=== PATIENT | female | born 1945 | race Caucasian/White ===

== ENCOUNTER 2017-05-04 04:56 | Inpatient (IN) | payer OTHER, BC ==
[~2017-05-04] VITALS: Ht 2.5 cm; Wt 93.9 kg
[2017-05-04] VITALS (38 sets, daily range): BP systolic 81–155; BP diastolic 43–90
--- NOTE | ~2017-05-04 | HC ---
[facility] [place] [address] [place] [address] CONSULTATION Name: MARIENUNU Room #: 209-P [facility] IN ..#: [id number] Admission: 05/04/17 Attend Phys: Goyo Worrell MD Discharge: Date of : 43 Report #: [id number] THIS REPORT FOR: //name// CC: Goyo [facility] DATE OF SERVICE: 05/06/2017 HISTORY OF PRESENT ILLNESS: The patient is a 71-year-old white female with a prior history of hypertension, hyperlipidemia, COPD, exogenous obesity who was noted to have right shoulder impingement, right shoulder rotator cuff tear, biceps tendinitis, who underwent right shoulder arthroscopic rotator cuff repair with biceps tenodesis and extensive arthroscopic debridement by Dr. Cavanaugh on 05/04/2017. During the extubation, the patient was in respiratory distress. She was seen by manager clinical pharmacy and was intubated, chest tube was placed. She was hypotensive with blood pressure stabilized with IV fluids. She was transferred to the ICU. She was noted to have a right pneumothorax. She had a slow leak from the chest tube. Pulmonary has been involved. She has been extubated. The chest tube did fall out and was replaced by Interventional Radiology. She continues on suction. We are seeing her in rehabilitation medicine consultation. PAST MEDICAL HISTORY: As noted above. She has a history of hypertension, tachycardia, Graves disease, high cholesterol, COPD, ulcers, right little toe amputation, and left knee replacement. 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 MEDICATIONS: Please see the full medication listing. SOCIAL HISTORY: Lives near [place], [place]. She will be staying with her son here in the [place] area. The son lives in a house with two floors. He works during the day. The patient will be at the son's house with her . He is retired, has had back problems and walks with a cane, but he will be assisting the patient during the postoperative period while they are at their son's home. REVIEW OF SYSTEMS: No current complaints of chest pain, shortness of breath, abdominal discomfort. She has some right upper extremity discomfort as expected. PHYSICAL EXAMINATION: GENERAL: Pleasant, overweight 71-year-old white female in no obvious distress. VITAL SIGNS: Last recorded temperature 98.1, pulse 102, respirations 16, blood pressure 149/75. [facility] [address] [place] [address] CONSULTATION Name: NUNU MARIE Room #: 209-P [facility] IN .R.#: [id number] Admission: 05/04/17 Attend Phys: Goyo Worrell MD Discharge: Date of : 43 Report #: [id number] EXTREMITIES: She has functional range of motion of the left upper extremity without focal weakness. Functional range of motion of both lower extremities. No focal calf swelling. Strength appears to be grade 4-/5. DTRs are trace to 1. Right upper extremity is in a sling/immobilizer. She can move her fingers. Dressing is intact and appears dry up that right shoulder. She has a right anterior chest tube in place and it is hooked up to suction. She is currently min assist with toilet transfers, dependent for cleaning herself. ASSESSMENT: A 71-year-old white female with the following problem list: 1. Medical complexity with generalized debilitation. 2. Right pneumothorax, status post chest tube. Currently on 5 liters nasal prong O2. 3. Status post right shoulder arthroscopy and rotator cuff repair. 4. Premorbid chronic obstructive pulmonary disease. 5. Acute hypoxemic respiratory failure. 6. History of Graves disease. 7. Hyperglycemia, likely related to steroids during the postoperative period. 8. History of depression/anxiety. PLAN: Physical therapy orders are added. We will do some gentle functional mobility issues. Occupational therapy is already involved. She is to continue with the chest tube for now, and we will be glad to follow along with you regarding her rehab therapy needs. She may warrant a short acute in-hospital inpatient rehabilitation stay as she further medically stabilizes. We will continue to follow along with you for now. By: [id number] Eddie Sweeney MD /nt
--- NOTE | ~2017-05-04 | O ---
[address] [address] OPERATIVE REPORT Name: NUNU MARIE Room #: 150-1 [facility]..#: [id number] Admission: 05/04/17 Attend Phys: Yovany Cavanaugh MD Discharge: Date of : 43 Report #: [id number] THIS REPORT FOR: //name// CC: Yovany [facility] DATE OF SERVICE: 05/04/2017 SERVICE: Orthopedics. FACILITY: [facility] SURGEON: Yovany Cavanaugh MD HEAT TREATER APPRENTICE: None. PREOPERATIVE DIAGNOSES: 1. Right shoulder pain. 2. Right shoulder impingement. 3. Right shoulder rotator cuff tear. POSTOPERATIVE DIAGNOSES: 1. Right shoulder pain. 2. Right shoulder impingement. 3. Right shoulder rotator cuff tear. 4. Intense biceps tendinitis, right shoulder. 5. Degenerative superior labral tear, right shoulder. PROCEDURES: 1. Right shoulder arthroscopic rotator cuff repair. 2. Right shoulder arthroscopic biceps tenodesis. 3. Right shoulder arthroscopic subacromial decompression. 4. Right shoulder extensive arthroscopic debridement. COMPLICATIONS: None. DRAINS: None. SPECIMENS: None. ANESTHESIA TYPE: General with regional nerve block by anesthesia. ESTIMATED BLOOD LOSS: 10 mL. FINDINGS: 1. High grade partial thickness bursal sided tear of the supraspinatus [address] [address] OPERATIVE REPORT Name: NUNU MARIE Room #: 150-1 [facility]#: [id number] Admission: 05/04/17 Attend Phys: Yovany Cavanaugh MD Discharge: Date of : 43 Report #: [id number] extending 90% of the width, treated with single 5.5 mm Coffe[employer]hew PEEK triple loaded suture anchor with 1 suture used to perform the arthroscopic biceps tenodesis. 2. Intact articular cartilage. HISTORY AND INDICATIONS: The patient is a 71-year-old female with history of persistent right shoulder pain that was affecting activities of daily living including caring for her who is ill himself. She had extensive conservative treatment including rest, activity modification. Cortisone injections were on multiple occasions as well as oral medications, but these failed to provide sufficient relief. She eventually elected to undergo treatment surgically. Risks, benefits, alternatives and indications for surgery were discussed with her in detail. Risks included but not limited to pain, bleeding, infection, injury to nerves or blood vessels, persistent pain despite surgical intervention, progression of any preexisting chondral injury, failure of any repairs, reconstructions, stiffness, need for further surgery including revision as well as complications related to anesthesia such as stroke, heart attack, pulmonary complications, thromboembolic disease and . Despite these risks, she wished to proceed. PROCEDURE IN DETAIL: After right upper extremity was correctly identified in the preoperative holding area as the operative extremity, the patient underwent placement of a single shot regional nerve block by the anesthesia team. She was then taken to the operating room and placed supine on operating table and general anesthesia was induced without complication. She was seated in beach chair position and padded appropriately. The beach chair was left more reclined to maximize cerebral perfusion. Prophylactic antibiotics with 900 mg of clindamycin were administered at appropriate time. The right upper extremity was prepped and draped in standard sterile fashion. Time-out procedure was performed. Standard posterior viewing portal was established. Diagnostic arthroscopy was performed. An anterior interval portal was established in the outside end fashion. There was intense erythema along the biceps on the anterior aspect of it and then at insertion on the superior labrum. There was granulation tissue, synovitis and inflammation along the biceps insertion including the most proximal portion of the biceps tendon itself. There is also a small partial thickness tear more distally in the biceps tendon. The superior labrum, anterior labrum and posterior labrum had degenerative fraying, which was treated with debridement by the shaver. The rotator cuff was then marked with #1 PDS as it appeared to be intact on the articular side. The subscapularis insertion was normal. There was fraying and synovitis within the rotator interval and so this was excised with the shaver as well as part of the debridement. Scope was placed in the subacromial space and there was noted to be extensive amount of thickened bursa, which was treated with a very thorough bursectomy [address] [address] OPERATIVE REPORT Name: NUNU MARIE Katheryn Room #: 150-1 [facility] M.R.#: [id number] Admission: 05/04/17 Attend Phys: Yovany Cavanaugh MD Discharge: Date of : 43 Report #: [id number] with the shaver. There was some calcification of the CA ligament anteriorly with downsloping in this location of the acromion and so posterior cutting block technique was used to perform acromioplasty. There was noted to be a gap within the rotator cuff at the leading edge of the supraspinatus and this extended essentially down to the capsular layer making at least 90% thickness. Shaver was used to debride this very thoroughly. I then repaired the greater tuberosity for healing. A 5.5 mm Coffey [employer] Nephew PEEK triple loaded suture anchor was selected with the plan for 2 mattress sutures in the rotator cuff and then the third for the biceps tenodesis. Note that an 18 gauge spinal needle was then placed in the inner tubercular groove to secure the biceps tendon and keep it in its anatomic position prior to tenotomizing the biceps with arthroscopic scissors while the scope was still in the shoulder and this maintained biceps in its correct position to facilitate an anatomic tenodesis. At this point, the mattress sutures were passed to the posterior as well as the anterior portion of the rotator cuff and good repair of the footprint was achieved, primarily with mobilizing the more posterior portion of the supraspinatus over the defect. The overall defect would be graded as a small to medium rotator cuff tear. At this point, the biceps tendon was then removed from the shoulder arthroscopically and the third suture from the anchor was passed in mattress fashion with both sutures passed through the biceps within a different collagen plane and then this was tied and this allowed the biceps tendon to overlay the lateral portion of the tuberosity as a patch over the healing rotator cuff tendon. Finally, the more anterior mattress suture was passed under the biceps and then it was tied back to the other limb so that we had a mattress suture and a cerclage suture performed in the tenodesis for good secure repair. Final photographs were taken. Arthroscopic effusion was drained. Portal sites were closed with 3-0 Monocryl suture. Sterile dressing was applied and the patient was awakened from anesthesia and taken to recovery room in stable condition. There were no complications and all counts were recorded as correct. <ELECTRONICALLY SIGNED> By: Yovany Cavanaugh MD 05/04/17 1233 [id number] Yovany Cavanaugh MD /chantelle
--- NOTE | ~2017-05-04 | HC ---
[facility] [place] [address] CONSULTATION Name: CYNTHIANUNU Katheryn Room #: 209-P [facility] IN ..#: [id number] Admission: 05/04/17 Attend Phys: Goyo Worrell MD Discharge: 05/11/17 Date of : 43 Report #: [id number] THIS REPORT FOR: //name// CC: Dr. Franklin [facility] DATE OF SERVICE: 05/04/2017 REFERRING PROVIDER: Yovany Cavanaugh MD REASON FOR CONSULTATION: Postoperative respiratory failure and pneumothorax. CHIEF COMPLAINT: Above. HISTORY OF PRESENT ILLNESS: Our group was asked urgently come and evaluate the patient in the recovery room. She is a 71-year-old woman with underlying history of COPD, followed by Dr. Reid for her pulmonary needs, presented for right shoulder rotator cuff repair and undergone a never block. Postoperatively developed significant subcu emphysema in her chest and around the orbits. We were asked urgently come and evaluate her in the recovery room. This was quickly identified as a right-sided pneumothorax with subcutaneous emphysema. Dr. Mazariegos of interventional radiology promptly arrived and placed a small caliber chest tube in the right anterior chest. Significant reexpansion of the lung noted, but persistent pneumothorax was noted despite ongoing brisk air leak. The patient has been stable throughout this time, arousable, following commands, although sedated with peak pressure of less than 20 on mechanical ventilatory support at this time. Blood pressures have been stable, not requiring any additional treatment other than IV fluids. History is more difficulty take than what is provided as the patient cannot provide history and family can provide only additional limited history. ALLERGIES: Include PROZAC, PENICILLINS and BUPROPION. OUTPATIENT MEDICATIONS: Included temazepam, alprazolam, atorvastatin, metoprolol, methimazole, olmesartan, roflumilast, amlodipine, tiotropium, ibuprofen, aspirin, and albuterol. PAST MEDICAL HISTORY: 1. COPD, severity unclear, no records available. 2. Hypertension. 3. History of Graves disease. 4. History of depression. 5. Hiatal hernia. 6. Prior orthopedic surgeries. [facility] [address] [place] [address] CONSULTATION Name: NUNU MARIE Katheryn Room #: 209-P [facility] IN [facility]#: [id number] Admission: 05/04/17 Attend Phys: Goyo Worrell MD Discharge: 05/11/17 Date of : 43 Report #: [id number] SOCIAL HISTORY: The patient is an ex-smoker. No other social history available. FAMILY HISTORY: Unobtainable due to current status. REVIEW OF SYSTEMS: Otherwise unobtainable due to her current status. PHYSICAL EXAMINATION: VITAL SIGNS: Afebrile, pulse 80s, respiratory rate 12, satting on ventilator, blood pressure 104/55. GENERAL: This is an elderly woman, sedated, but arousable, no distress. ENT: Revealed significant subcutaneous emphysema around the orbits and face and upper neck. Endotracheal tube in place, cannot assess oropharynx. LUNGS: Markedly diminished on the right with hyperresonance to percussion. Significant chest subcutaneous emphysema noted. CARDIOVASCULAR: Heart was regular. No murmurs noted. ABDOMEN: Soft, nontender, no masses. EXTREMITIES: Warm, 2+ pulses, no edema appreciated. Right upper extremity, shoulder was dressed and in a brace. LABORATORY DATA: Pending. Chest x-ray as described with a large right-sided pneumothorax with subsequently small caliber chest tube in place at this time. IMPRESSION: 1. Spontaneous right pneumothorax, likely iatrogenic, related to procedure. 2. Respiratory failure likely from wean from mechanical ventilatory support once subcutaneous emphysema improves. 3. Underlying chronic obstructive pulmonary disease. We will continue with bronchodilators. 4. Status post right shoulder rotator cuff arthroscopic surgery. 5. Underlying hypertension. SUGGESTIONS: As outlined above, we will transfer ICU, large caliber chest tube to be placed as there continues to be a brisk air leak noted from chest tube, may be inadequate size for patient's needs. We will follow along in ICU, anticipate can extubate relatively quickly, no significant airway problems, continue with bronchodilators. <ELECTRONICALLY SIGNED> By: Kavin Adkins MD 05/16/17 1122 [id number] Kavin dAkins MD /nt
[~2017-05-04 04:56] MED LIST: ALPRAZOLAM 0.50.5 M1 PO; AMLODIPINE BESY10 MG PO; ASPIR 8181 MG PO; ATORVASTATIN CA40 MG PO; BENICAR20 MG PO; DALIRESP500 MCG PO; IBUPROFEN 200200 M1 PO; LOPRESSOR50 PO; PRISTIQ ER25 MG PO; RESTORIL15 M1 PO; SPIRIVA INH; TAPAZOLE5 MG PO; VENTOLIN HFA 1818 GM INH
[2017-05-04 16:21] LABS: ABG SAMPLE TYPE ARTERIAL; BE(vivo) -4.5 mmol/L (-2 to +3); HCO3 21.6 mmol/L (22.0-26.0); LACTATE 2.24 mmol/L (0.5-2.0); O2Hb 92.7 % (92.0-98.0); PCO2 43.4 mmHg (35.0-45.0); PO2 71.9 mmHg (80.0-100.0); sO2 93.2 % (92.0-98.0); tCO2 22.9 mmol/L (24.0-30.0)
[2017-05-04 16:22] LABS: STICK SITE L.RADIAL; pH 7.315 (7.360-7.450)
[2017-05-04 16:25] LABS: Pressure Support 5 cm H20; TIDAL VOLUME 400 ml
[2017-05-04 20:02] LABS: HEMATOCRIT 38.1 % (37.0-47.0); HEMOGLOBIN 12.9 gm/dL (12.0-15.0); MANUAL DIFF YES; MCHC 33.9 g/dL (28.0-37.0); MCV 91.5 fL (80.0-100.0); PLATELET COUNT 219 thou/uL (150-400); RBC 4.16 mil/uL (4.20-5.00); RDW 12.5 % (10.5-14.5); WBC 14.8 thou/uL (4.0-11.0)
[2017-05-04 20:17] LABS: ALBUMIN 2.9 g/dL (3.4-5.0); CALCIUM 7.5 mg/dL (8.5-10.1); CREATININE 0.8 mg/dL (0.6-1.0); POTASSIUM 3.7 mmol/L (3.5-5.1); TOTAL BILIRUBIN 0.4 mg/dL (<0.1-1.0); TOTAL PROTEIN 5.8 g/dL (6.4-8.2)
[2017-05-04 20:30] LABS: ABSOLUTE NEUTROPHILS 13.3 thou/uL (1.4-8.2); ANISOCYTOSIS SLIGHT; TOTAL CELL COUNT 100
[2017-05-05] VITALS (46 sets, daily range): BP systolic 94–173; BP diastolic 45–90
[2017-05-05 05:03] LABS: HEMOGLOBIN 12.5 gm/dL (12.0-15.0); MCHC 33.7 g/dL (28.0-37.0); MCV 91.8 fL (80.0-100.0); RBC 4.03 mil/uL (4.20-5.00); RDW 12.8 % (10.5-14.5); WBC 18.4 thou/uL (4.0-11.0)
[2017-05-05 05:13] LABS: CALCIUM 8.4 mg/dL (8.5-10.1); CREATININE 0.8 mg/dL (0.6-1.0); POTASSIUM 4.2 mmol/L (3.5-5.1)
[2017-05-05 06:09] LABS: ABG SAMPLE TYPE ARTERIAL; BE(vivo) -2.3 mmol/L (-2 to +3); HCO3 23.1 mmol/L (22.0-26.0); LACTATE 2.77 mmol/L (0.5-2.0); O2(CT) 17.6 mL/dL (15.0-23.0); O2Hb 92.8 % (92.0-98.0); PCO2 42.4 mmHg (35.0-45.0); PO2 68.5 mmHg (80.0-100.0); pH 7.355 (7.360-7.450); tCO2 24.4 mmol/L (24.0-30.0)
[2017-05-05 06:39] LABS: STICK SITE L.RADIAL
[2017-05-06 03:58] VITALS: BP 130/62
[2017-05-06 04:34] LABS: CALCIUM 9.1 mg/dL (8.5-10.1); CREATININE 0.8 mg/dL (0.6-1.0)
[2017-05-06 04:51] LABS: HEMATOCRIT 40.2 % (37.0-47.0); HEMOGLOBIN 13.5 gm/dL (12.0-15.0); MCH 31.1 pg (26.0-34.0); MCHC 33.5 g/dL (28.0-37.0); RBC 4.32 mil/uL (4.20-5.00); RDW 13.2 % (10.5-14.5); WBC 19.1 thou/uL (4.0-11.0)
[2017-05-06 08:09] VITALS: BP 149/75
[2017-05-06 10:10] VITALS: BP 149/75
[2017-05-06 16:59] VITALS: BP 125/59
[2017-05-06 19:38] VITALS: BP 148/59
[2017-05-07 05:27] LABS: HEMATOCRIT 38.2 % (37.0-47.0); HEMOGLOBIN 12.9 gm/dL (12.0-15.0); MCH 31.1 pg (26.0-34.0); MCHC 33.6 g/dL (28.0-37.0); MCV 92.4 fL (80.0-100.0); RBC 4.14 mil/uL (4.20-5.00); RDW 13.2 % (10.5-14.5); WBC 16.3 thou/uL (4.0-11.0)
[2017-05-07 05:34] VITALS: BP 125/64
[2017-05-07 05:35] LABS: CALCIUM 8.7 mg/dL (8.5-10.1); CREATININE 0.8 mg/dL (0.6-1.0); POTASSIUM 3.7 mmol/L (3.5-5.1)
[2017-05-07 07:47] VITALS: BP 130/68
[2017-05-07 16:50] VITALS: BP 138/62
[2017-05-07 19:50] VITALS: BP 132/61
[2017-05-08 05:36] VITALS: BP 150/79
[2017-05-08 08:15] VITALS: BP 111/74
[2017-05-08 11:05] VITALS: BP 135/63
[2017-05-08 15:53] VITALS: BP 114/62
[2017-05-08 19:40] VITALS: BP 166/76
[2017-05-09 00:01] VITALS: BP 135/71
[2017-05-09 04:00] VITALS: BP 139/69
[2017-05-09 04:09] LABS: HEMATOCRIT 36.5 % (37.0-47.0); HEMOGLOBIN 12.4 gm/dL (12.0-15.0); MCH 31.8 pg (26.0-34.0); MCV 93.6 fL (80.0-100.0); RBC 3.9 mil/uL (4.20-5.00); RDW 12.9 % (10.5-14.5); WBC 10.5 thou/uL (4.0-11.0)
[2017-05-09 04:13] LABS: ALBUMIN 2.6 g/dL (3.4-5.0); CALCIUM 8.8 mg/dL (8.5-10.1); CREATININE 0.9 mg/dL (0.6-1.0); POTASSIUM 3.9 mmol/L (3.5-5.1); TOTAL BILIRUBIN 0.5 mg/dL (<0.1-1.0); TOTAL PROTEIN 6.2 g/dL (6.4-8.2)
[2017-05-09 07:30] VITALS: BP 154/61
[2017-05-09 11:00] VITALS: BP 114/51
[2017-05-09 15:29] VITALS: BP 134/59
[2017-05-09 20:06] VITALS: BP 156/70
[2017-05-10 05:09] VITALS: BP 138/72
[2017-05-10 11:46] VITALS: BP 132/60
[2017-05-10 16:28] VITALS: BP 134/62
[2017-05-10 20:31] VITALS: BP 158/61
[2017-05-11 04:03] VITALS: BP 143/61
[2017-05-11 08:00] VITALS: BP 138/59
[2017-05-11 11:41] VITALS: BP 138/59
[2017-05-11] MEDS ORDERED: HYDROCODONE-AP1 EAC6 PO (13:47)
[2017-05-11 14:09] VITALS: BP 138/59
[2017-05-11 16:43] VITALS: BP 138/59
== END 2017-05-11 18:17 | disposition home health service (06) | DRG 981 ==
LOC: OR 04:56 → TBA 04:56 → OR 11:47 → 2N 14:32 → OR 14:32 → ICU 14:32 → 2N 05-05 23:26
PROVIDERS: Hospitalist; Nurse Practitioner; Orthopaedic Surgery Sports Medicine
PROC: 0LS34ZZ Reposition Right Upper Arm Tendon, Percutaneous Endoscopic Approach (ICD-10-PCS; principal; 2017-05-04)
PROC: 0RHJ44Z Insertion of Internal Fixation Device into Right Shoulder Joint, Percutaneous Endoscopic Approach (ICD-10-PCS; principal; 2017-05-04)
PROC: 0LQ14ZZ Repair Right Shoulder Tendon, Percutaneous Endoscopic Approach (ICD-10-PCS; principal; 2017-05-04)
PROC: 3E0T33Z Introduction of Anti-inflammatory into Peripheral Nerves and Plexi, Percutaneous Approach (ICD-10-PCS; 2017-05-04)
PROC: 3E0T3BZ Introduction of Anesthetic Agent into Peripheral Nerves and Plexi, Percutaneous Approach (ICD-10-PCS; 2017-05-04)
PROC: 0W9930Z Drainage of Right Pleural Cavity with Drainage Device, Percutaneous Approach (ICD-10-PCS; 2017-05-06)
DX: J93.9 Pneumothorax, unspecified (principal); J96.01 Acute respiratory failure with hypoxia; I47.1 Supraventricular tachycardia; M75.101 Unspecified rotator cuff tear or rupture of right shoulder, not specified as traumatic; M25.811 Other specified joint disorders, right shoulder; M75.21 Bicipital tendinitis, right shoulder; I10 Essential (primary) hypertension; E78.5 Hyperlipidemia, unspecified; J44.9 Chronic obstructive pulmonary disease, unspecified; E78.00 Pure hypercholesterolemia, unspecified; F32.9 Major depressive disorder, single episode, unspecified; F41.9 Anxiety disorder, unspecified; Z96.651 Presence of right artificial knee joint; R73.9 Hyperglycemia, unspecified; Z88.0 Allergy status to penicillin; Z88.8 Allergy status to other drugs, medicaments and biological substances; Z89.421 Acquired absence of other right toe(s); Z98.42 Cataract extraction status, left eye; Z98.41 Cataract extraction status, right eye; Z87.891 Personal history of nicotine dependence
CPT/HCPCS: 10078; 10081; 50010; 50101; 50172; 50386; 50417; 50733; 50935; 50950; 51038; 51445; 54170; 55430; 56524; 56527; 56617; 62110; 62900; 64041; 64043; 70005